=== PATIENT | male | born 1970 | race Two or more races ===

== ENCOUNTER 2019-04-11 05:30 | Day surgery (SDC) | payer MEDICAID ==
[~2019-04-11] VITALS: Ht 167.6 cm; Wt 77.4 kg
[2019-04-11] MEDS ORDERED: LIDOCAINE/PF 2% 5 ML VIAL IM ONE (05:31)
[2019-04-11] MEDS ORDERED: PROPOFOL 1% 20 ML VIAL IVP ONE (05:31)
[2019-04-11] MEDS ORDERED: SODIUM CHLORIDE 0.9% 1,000 ML IV ONE ×2 (06:02→06:30)
== END 2019-04-11 09:20 | disposition home or self-care (01) ==
LOC: SURGERY 05:30
PROVIDERS: ATTEND Internal Medicine Gastroenterology
DX: Z12.11 Encounter for screening for malignant neoplasm of colon (principal); D12.8 Benign neoplasm of rectum; K29.50 Unspecified chronic gastritis without bleeding; K44.9 Diaphragmatic hernia without obstruction or gangrene; K64.8 Other hemorrhoids; I10 Essential (primary) hypertension; I49.9 Cardiac arrhythmia, unspecified; Z88.6 Allergy status to analgesic agent; Z79.899 Other long term (current) drug therapy; Z98.890 Other specified postprocedural states
CPT/HCPCS: 45385; 43239; 88305; 88312; 88313; 93005; C1769; J2704; J3490; J7030